=== PATIENT | female | born 1975 | race Caucasian/White ===

== ENCOUNTER 2021-03-12 19:24 | Emergency (ER) | payer OTHER ==
[~2021-03-12] VITALS: Ht 162.6 cm; Wt 108.9 kg
[2021-03-12 20:44] LABS: HEMOGLOBIN 15.2 gm/dl (12.3-15.3); RED BLOOD COUNT 4.96 M/UL (4.00-5.10)
[2021-03-12 21:27] LABS: BUN/CREATININE RATIO 9 (0-10)
[2021-03-12] MEDS ORDERED: ZITHROMAX250 MG PO (22:48)
[2021-03-12] MEDS ORDERED: CEPHALEXIN500 M1 PO (22:48)
== END 2021-03-12 23:35 | disposition home or self-care (01) ==
LOC: ER1 19:24
PROVIDERS: Physician Assistant
DX: Z23 Encounter for immunization (principal); U07.1 COVID-19; J12.82 Pneumonia due to coronavirus disease 2019; M10.9 Gout, unspecified; M06.9 Rheumatoid arthritis, unspecified; N18.9 Chronic kidney disease, unspecified; Z88.0 Allergy status to penicillin; Z88.2 Allergy status to sulfonamides; Z88.1 Allergy status to other antibiotic agents
CPT/HCPCS: 71045; 80053; 81001; 84703; 85025; 87086; 96374; 99284; J2405; M0243